=== PATIENT | female | born 1995 | race Caucasian/White ===

== ENCOUNTER 2016-07-29 22:39 | Emergency (ER) | payer MEDICAID ==
[2016-07-29] MEDS ORDERED: NS 0.9% 1000 ML* 1,000 ML IV ONE (23:02)
[2016-07-29 23:56] LABS: Manual Entry Verification LOR0008; UR Preg Internal Control QC Line Present
[2016-07-29 23:58] LABS: Urine Bilirubin Negative (Negative); Urine Glucose Negative (Negative); Urine Nitrite Negative (Negative)
[2016-07-30 00:02] LABS: Hematocrit 33 % (35-47); Hemoglobin 10.8 g/dl (12.0-16.0); Mean Corpuscular HGB Conc 33 g/dl (31-36); Mean Corpuscular Hemoglobin 29 pg (27-31); Mean Corpuscular Volume 87 fL (80-97); Mean Platelet Volume 8 um3 (7.4-10.4); Red Blood Count 3.77 10^6/ul (4.0-5.4); Red Cell Distribution Width 14 % (10.5-15); White Blood Count 13.5 10^3/ul (3.5-10.8)
[2016-07-30 00:10] LABS: Add Diff/Slide Review? Slide Review Added; Comments Flag Yes
[2016-07-30 00:16] LABS: Albumin 3.2 g/dL (3.2-5.2); Anion Gap 7 mmol/L (2-11); BUN/Creatinine Ratio 14.6 (8-20); Blood Urea Nitrogen 7 mg/dL (6-24); CO2 Carbon Dioxide 23 mmol/L (22-32); Calcium 8.6 mg/dL (8.6-10.3); Chloride 105 mmol/L (101-111); EGFR African American 214.3 (>60); EGFR Non-African American 166.6 (>60); Globulin 2.6 g/dL (2-4); Glucose 85 mg/dL (70-100); Potassium 3.5 mmol/L (3.5-5.0); Sodium 135 mmol/L (133-145); Total Protein 5.8 g/dL (6.4-8.9)
[2016-07-30 00:17] LABS: ALT 6 U/L (7-52); AST 10 U/L (13-39); Alkaline Phosphatase 51 U/L (34-104); Lipase < 10 U/L (11.0-82.0)
[2016-07-30 01:08] VITALS: BP 97/54
--- NOTE | 2016-07-30 02:09 | ED ---
Abdoulaye Nair Adam, scribed for Craig Vizcaino on 07/29/16 at 2308 . Abdominal Pain/Female - HPI Summary HPI Summary: Pt is a 20 year old female presenting with abdominal pain. She is 20 weeks into her and she states that she developed severe abdominal pain this afternoon and it has been constant since. The pain is diffuse across both sides of her lower abdomen. Pt denies any vaginal bleeding. PMHx of ovarian cyst. Pt uses tobacco with vape. Her LMP was 03/07/2016. - History of Current Complaint Chief Complaint: EDAbdPain Stated Complaint: ABD PAIN/20 WKS PREG Time Seen by Provider: 07/29/16 22:59 Hx Obtained From: Patient Onset/Duration: Sudden Onset, Lasting Hours, Still Present Timing: Constant Severity Initially: Moderate Severity Currently: Moderate Location: Diffuse - In RLQ and LLQ Radiates: No Aggravating Factor(s): Nothing Alleviating Factor(s): Nothing Associated Signs and Symptoms: Positive: Negative Allergies/Adverse Reactions: Allergies Allergy/AdvReac Type Severity Reaction Status Date / Time No Known Allergies Allergy Verified 10/10/15 01:50 PMH/Surg Hx/FS Hx/Imm Hx Endocrine/Hematology History: Denies: Hx Diabetes Cardiovascular History: Denies: Hx Congestive Heart Failure History: Reports: Other Problems/Disorders - Ovarian cyst Denies: Hx Kidney Stones Infectious Disease History: Denies: Traveled Outside the [place] in Last 30 Days - Family History Known Family History: Positive: Diabetes - Social History Occupation: Employed Full-time Lives: With Family - Parents Alcohol Use: None Hx Substance Use: No Substance Use Type: Reports: None Hx Tobacco Use: Yes Smoking Status (MU): Current Every Day Smoker Type: eCigarettes - Vape Review of Systems Positive: Abdominal Pain Genitourinary: Negative All Other Systems Reviewed And Are Negative: Yes Physical Exam Triage Information Reviewed: Yes Vital Signs Reviewed: Yes Appearance: Positive: Well-Appearing, No Pain Distress Skin: Positive: Warm, Skin Color Reflects Adequate Perfusion, Dry Head/Face: Positive: Normal Head/Face Inspection Eyes: Positive: EOMI, SHRUTHI ENT: Positive: Normal ENT inspection Neck: Positive: Supple, Nontender Respiratory/Lung Sounds: Positive: Clear to Auscultation, Breath Sounds Present Cardiovascular: Positive: RRR, Pulses are Symmetrical in both Upper and Lower Extremities Abdomen Description: Positive: Other: - Tenderness in the RLQ and LLQ Bowel Sounds: Positive: Present Musculoskeletal: Positive: Normal, Strength/ROM Intact Diagnostics - Laboratory Result Diagrams: 07/29/16 23:50 07/29/16 23:50 Lab Statement: Any lab studies that have been ordered have been reviewed, and results considered in the medical decision making process. - Additional Comments Diagnostic Additional Comments: Beta HCG, Quant - 5585.00 Abdomen Ultrasound - IMPRESSION: NONVISUALIZATION THE APPENDIX AND THEREFORE APPENDICITIS CANNOT BE EXCLUDED. Ultrasound - IMPRESSION: NO ACUTE PATHOLOGY. NONVISUALIZATION OF RIGHT OVARY. ECHOGENIC INTRACARDIAC FOCUS. Abdominal Pain Fem Course/Dx - Course Course Of Treatment: Patient has been advised to return to the ED immediately for any worsening pain in the RLQ in the next 72 hours to be evaluated for appendicitis. - Diagnoses Provider Diagnoses: Discomfort of , Nonspecific abdominal pain - Provider Notifications Discussed Care Of Patient With: Dr. Elizondo (LEAK HUNTER) at 00:53. Discharge - Discharge Plan Condition: Stable Disposition: HOME Patient Education Materials: Abdominal Pain in (ED) Referrals: Emre Elizondo MD [Medical Doctor] - Additional Instructions: Follow up with your LEAK HUNTER. The documentation as recorded by the Abdoulaye britt Adam accurately reflects the service I personally performed and the decisions made by , Craig Vizcaino.
--- NOTE | 2016-07-30 08:41 | RAD ---
Indication: Right lower quadrant pain. Graded compression sonography of the right lower quadrant was performed utilizing a high frequency linear transducer. No evidence of abnormal fluid is noted in the right lower quadrant. Appendix is not visualized. IMPRESSION: Limited abdominal ultrasound with appendix not visualized.
--- NOTE | 2016-07-30 08:41 | RAD ---
Indication: Left lower quadrant pain. Real-time sonography of the was performed. There is a single intrauterine gestation in cephalic presentation. There is an anterior placenta without evidence of placenta previa. heart rate is 134 bpm. movement is noted. Amniotic fluid index is 14.4. The cervix is unremarkable and measures 3.4 cm in length. The BPD measures 4.9 cm corresponding to gestational age of 21 weeks 0 days. Head circumference measures 18.5 cm corresponding to gestational age of 20 weeks 6 days. Abdominal circumference measures 15.9 cm corresponding to gestational age of 21 weeks 0 days. Femur length measures 3.6 cm corresponding to gestational age of 21 weeks 4 days. Estimated weight is 403 g. Limited survey performed with a four-chamber heart identified. Likely papillary muscle is noted in the left ventricle. The maternal left ovary measures up to 3.3 cm and demonstrates normal flow. Right ovary is not visualized. IMPRESSION: Limited ultrasound with a closed cervix. Amniotic fluid index is within normal limits. No evidence of placenta previa or placental abruption is noted. heart activity is noted at 134 bpm. Estimated gestational age is 21 weeks 1 day determined by today's ultrasound. Estimated date of delivery is December 09, 2016. Echogenic focus in the left ventricle is likely due to papillary muscle although this is incompletely evaluated. Follow-up exam as clinically warranted is suggested.
== END 2016-07-30 01:07 | disposition home or self-care (01) ==
LOC: ED 22:39
DX: O26.892 Other specified pregnancy related conditions, second trimester (principal); R10.31 Right lower quadrant pain; Z3A.20 20 weeks gestation of pregnancy; O99.332 Smoking (tobacco) complicating pregnancy, second trimester; F17.210 Nicotine dependence, cigarettes, uncomplicated
CPT/HCPCS: 36415; 76705; 76815; 80053; 81003; 81025; 83690; 84702; 85025; 85610; 85730; 86850; 86900; 86901; 96374; 99283

== ENCOUNTER 2016-10-24 02:23 | Emergency (ER) | payer MEDICAID, OTHER ==
[2016-10-24] MEDS ORDERED: Amoxicillin/Clavulanate TAB* 875 MG PO ONE (03:09)
[2016-10-24] MEDS ORDERED: Acetaminophen TAB* 325 MG PO ONE (03:09)
--- NOTE | 2016-10-24 03:14 | ED ---
Sreedhar Nair Benjamin, scribed for Janneth Osborn MD on 10/24/16 at 0252 . Throat Pain/Nasal Congestion - HPI Summary HPI Summary: 21yo female who is 33 weeks presents with left ear pain and not being able to hear from it for few days. Pt has hx of ear surgery on left ear 5-6 years ago for hearing issues. - History of Current Complaint Chief Complaint: EDEarPain Time Seen by Provider: 10/24/16 02:36 Hx Obtained From: Patient, Family/Domestic Technician - mother Onset/Duration: Gradual Onset, Lasting Days - 2-3 days, Still Present Severity: Mild Associated Signs And Symptoms: Positive: Negative Cough: None - Allergies/Home Medications Allergies/Adverse Reactions: Allergies Allergy/AdvReac Type Severity Reaction Status Date / Time No Known Allergies Allergy Verified 10/10/15 01:50 PMH/Surg Hx/FS Hx/Imm Hx Endocrine/Hematology History: Denies: Hx Diabetes Cardiovascular History: Denies: Hx Congestive Heart Failure History: Reports: Other Problems/Disorders - Ovarian cyst Denies: Hx Kidney Stones Infectious Disease History: No Infectious Disease History: Denies: Traveled Outside the [place] in Last 30 Days - Family History Known Family History: Positive: Diabetes Negative: Cardiac Disease, Hypertension - Social History Occupation: Employed Full-time Lives: With Family Alcohol Use: None Hx Substance Use: No Substance Use Type: Reports: None Hx Tobacco Use: Yes Smoking Status (MU): Current Every Day Smoker Type: eCigarettes - Vape Review of Systems Constitutional: Negative Eyes: Negative Positive: Ear Ache - left, Other - left hearing loss Respiratory: Negative Gastrointestinal: Negative Genitourinary: Other - 33 weeks Musculoskeletal: Negative Skin: Negative Neurological: Negative Psychological: Normal All Other Systems Reviewed And Are Negative: Yes Physical Exam Triage Information Reviewed: Yes Vital Signs On Initial Exam: Initial Vitals Temp Pulse Resp BP Pulse Ox 97.9 F 94 18 118/61 99 10/24/16 02:34 10/24/16 02:34 10/24/16 02:34 10/24/16 02:34 10/24/16 02:34 Vital Signs Reviewed: Yes Appearance: Positive: Well-Appearing, No Pain Distress, Well-Nourished Skin: Positive: Warm, Skin Color Reflects Adequate Perfusion, Dry Head/Face: Positive: Normal Head/Face Inspection Eyes: Positive: EOMI, SHRUTHI ENT: Positive: Pharynx normal, TM bulging - left. Negative: TMs normal - left TM: yellow, brown, bulging. Right TM: white scar vs. implant. Neck: Positive: Supple, Nontender Respiratory/Lung Sounds: Negative: Rales, Rhonchi Cardiovascular: Positive: RRR. Negative: Murmur Abdomen Description: Positive: Nontender, Soft - weeks , Other:. Negative: Distended, Guarding Bowel Sounds: Positive: Present Musculoskeletal: Positive: Strength/ROM Intact Neurological: Positive: Sensory/Motor Intact, Alert, Oriented to Person Place, Time, CN Intact II-III Psychiatric: Positive: Affect/Mood Appropriate Diagnostics - Vital Signs Vital Signs Temp Pulse Resp BP Pulse Ox 10/24/16 02:34 97.9 F 94 18 118/61 99 - Laboratory Lab Statement: Any lab studies that have been ordered have been reviewed, and results considered in the medical decision making process. EENT Course/Dx - Course Course Of Treatment: 21 yo female with mult surgeries to both ears now with hearing issues and pain out of left ear for several days, her TM appears discolored and appears to be bulging will treat for otitis media and have pt see ENT in the next 1-2 days - Diagnoses Provider Diagnoses: Otitis media Discharge - Discharge Plan Condition: Stable Disposition: HOME Prescriptions: Amoxicillin/Clavulanate TAB* [Augmentin TAB 875*] 875 mg PO BID #20 tab Referrals: Alejandro Wheat MD [Primary Care Provider] - The documentation as recorded by the Sreedhar britt Benjamin accurately reflects the service I personally performed and the decisions made by me, Janneth Osborn MD.
[2016-10-24 04:28] VITALS: BP 106/52
== END 2016-10-24 04:26 | disposition home or self-care (01) ==
LOC: ED 02:23
DX: H66.92 Otitis media, unspecified, left ear (principal); H92.02 Otalgia, left ear; H91.92 Unspecified hearing loss, left ear; F17.210 Nicotine dependence, cigarettes, uncomplicated
CPT/HCPCS: 99283; A9270-GY

== ENCOUNTER 2016-11-26 12:39 | Inpatient (IN) | payer MEDICAID, OTHER ==
[2016-11-26] MEDS ORDERED: Oxytocin in LR* 20 UNITS/1,000 ML BAG IVPB SCH (23:45)
[2016-11-27 00:41] LABS: Hematocrit 32 % (35-47); Hemoglobin 10.8 g/dl (12.0-16.0); Mean Corpuscular HGB Conc 33 g/dl (31-36); Mean Corpuscular Hemoglobin 29 pg (27-31); Mean Corpuscular Volume 85 fL (80-97); Mean Platelet Volume 9 um3 (7.4-10.4); Red Blood Count 3.79 10^6/ul (4.0-5.4); Red Cell Distribution Width 15 % (10.5-15); White Blood Count 14.7 10^3/ul (3.5-10.8)
[2016-11-27 00:44] LABS: Add Diff/Slide Review? Slide Review Added; Comments Flag Yes
[2016-11-27] MEDS ORDERED: Promethazine INJ(RESTRICTED)* 25 MG/ML 1 ML VIAL IV ONE (04:17)
[2016-11-27] MEDS ORDERED: Nalbuphine* 20 MG/ML 1 ML VIAL IV ONE (04:17)
[2016-11-27] MEDS ORDERED: OBEPIDURAL* 0 ML ONE (07:59)
[2016-11-27] MEDS ORDERED: fentaNYL* 50 MCG/ML 2 ML VIAL (100 MCG VIAL) ONE (08:34)
[2016-11-27] MEDS ORDERED: Witch Hazel PAD* JAR TOPICAL PRN (09:23)
[2016-11-27] MEDS ORDERED: Dibucaine 1% 28.35 GM TUBE PR PRN (09:23)
[2016-11-27] MEDS ORDERED: Glycerin ADULT SUPP PR PRN (09:23)
[2016-11-27] MEDS ORDERED: Acetaminophen TAB* 325 MG PO PRN (09:23)
[2016-11-27] MEDS ORDERED: Famotidine TAB* 20 MG PO PRN (10:08)
[2016-11-27] MEDS ORDERED: Sodium Citrate/Citric Acid* 15 ML UDC PO PRN (10:08)
[2016-11-27] MEDS: Simethicone CHEW TAB* 80 MG PO SCH (12:48)
[2016-11-27] MEDS: Ibuprofen TAB* 600 MG PO PRN ×2 (13:13→22:06)
[2016-11-27] MEDS: Docusate CAP* 100 MG PO SCH ×2 (13:13→22:05)
[2016-11-27] MEDS: oxyCODONE/Acetamin 5/325 MG* TAB PO PRN (23:09)
[2016-11-28] MEDS ORDERED: LR IV ONE (00:45)
[2016-11-28] MEDS: oxyCODONE/Acetamin 5/325 MG* TAB PO PRN ×2 (03:44→09:10)
[2016-11-28 06:36] LABS: Hematocrit 32 % (35-47); Hemoglobin 10.3 g/dl (12.0-16.0); Mean Corpuscular HGB Conc 32 g/dl (31-36); Mean Corpuscular Hemoglobin 28 pg (27-31); Mean Corpuscular Volume 86 fL (80-97); Mean Platelet Volume 8 um3 (7.4-10.4); Red Cell Distribution Width 16 % (10.5-15); White Blood Count 16.5 10^3/ul (3.5-10.8)
[2016-11-28 06:40] LABS: Add Diff/Slide Review? Slide Review Added; Comments Flag Yes
[2016-11-28 08:22] LABS: Eosinophils % 1 % (0-6); Immature Granulocytes 3 % (0-9); Metamyelocytes % 1 % (0-2); Myelocytes % 2 % (0-1); Neutrophil % 74 % (38-83); RBC Morphology Normal (Normal); Reactive Lymph % 1 % (0-6)
[2016-11-28] MEDS ORDERED: Varicella Virus Vaccine Live* 0.5 ML VIAL SUBCUT ONE (09:00)
[2016-11-28] MEDS: Ferrous Gluconate TAB* 324 MG TAB PO SCH ×2 (09:00→21:30)
[2016-11-28] MEDS: Ibuprofen TAB* 600 MG PO PRN ×2 (09:09→16:27)
[2016-11-28] MEDS: Docusate CAP* 100 MG PO SCH ×3 (09:09→21:30)
[2016-11-28] MEDS ORDERED: Butalb/Acetamin/Caff TAB* 1 TAB ONE (12:45)
[2016-11-28] MEDS: Butalb/Acetamin/Caff TAB* 1 TAB PO SCH ×2 (16:29→21:30)
[2016-11-28] MEDS: Simethicone CHEW TAB* 80 MG PO SCH (21:31)
[2016-11-29] MEDS: Butalb/Acetamin/Caff TAB* 1 TAB PO SCH ×2 (05:35→05:36)
--- NOTE | 2016-11-29 06:59 | PM ---
PROCEDURE NOTE: DATE OF PROCEDURE: 11/28/16 CHIEF COMPLAINT: Headache. HISTORY: The patient is a 21-year-old female who underwent a labor epidural yesterday morning by Dr Jakob Lay. Unfortunately, the patient experienced a dural puncture and subsequently has had persistent postural headaches today that are causing her to be nearly incapacitated with pain. They tried con servative measures today with Fioricet and IV fluids, but unfortunately the patient's headache has p ersisted and they have requested an epidural blood patch. In my interview of the patient she states that she does have continued postural headache. It is relieved slightly while lying flat, worsens with standing up. ASSESSMENT AND PLAN: Post dural puncture headache. I talked to the patient today about an epidural blood patch. The risks, benefits and alternatives of therapy and informed consent was obtained. PROCEDURE NOTE: The patient's right antecubital area was prepped and draped in the usual sterile fa shion. I then prepped and draped her back, again in the usual sterile fashion; 3 cc of 1% lidocaine were used for local anesthesia at the L3-4 interspace. A 17-gauge Tuohy needle was used to identif y the epidural space using [id number] technique. There was no CSF, blood or paresthesia not ed. There was negative aspiration. I proceeded to then aseptically collect 16 cc of blood from the right antecubital area using strict sterile technique. I then proceeded to inject the blood increm entally into the epidural space with frequent negative aspirations. The patient tolerated the proce dure well. I did talk to her about the fact that she should try to remain still, not lift the baby too much tod ay, so as not to dislodge the patch. There is a small possibility that the headache can recur even in the setting of doing epidural blood patch today. They will call the anesthesiologist on-call if they have any further concerns with headaches. [id number]/[facility] #: [id number]
[2016-11-29 07:39] VITALS: BP 109/59
[2016-11-29] MEDS: Docusate CAP* 100 MG PO SCH (08:57)
== END 2016-11-29 11:01 | disposition home or self-care (01) | DRG 560 ==
LOC: MCHOBOUT 12:39 → MCHOB 13:51
PROVIDERS: ADMIT Obstetrics & Gynecology; ATTEND Midwife
PROC: 10E0XZZ Delivery of Products of Conception, External Approach (ICD-10-PCS; principal; 2016-11-27)
PROC: 4A1HXCZ Monitoring of Products of Conception, Cardiac Rate, External Approach (ICD-10-PCS; 2016-11-27)
DX: O42.12 Full-term premature rupture of membranes, onset of labor more than 24 hours following rupture (principal); J45.909 Unspecified asthma, uncomplicated; O75.89 Other specified complications of labor and delivery; O89.4 Spinal and epidural anesthesia-induced headache during the puerperium; Z3A.37 37 weeks gestation of pregnancy; Z37.0 Single live birth
CPT/HCPCS: 36415; 76815; 84112; 85025; 86850; 86900; 86901; A9270-GY; J2300; J2550; J3010

== ENCOUNTER 2016-12-01 03:00 | Emergency (ER) | payer MEDICAID, OTHER ==
[2016-12-01] MEDS ORDERED: Metoclopramide IV* 5 MG/ML 2 ML VIAL IV ONE (03:43)
[2016-12-01] MEDS ORDERED: diPHENhydraMINE IV* 50 MG/ML 1 ml VIAL (BENADRYL) IV ONE (03:43)
[2016-12-01] MEDS ORDERED: NS 0.9% 1000 ML* 1,000 ML IV ONE (03:43)
[2016-12-01] MEDS ORDERED: Morphine INJ* 2 MG/ML 1 ML SYRINGE IV ONE (03:43)
--- NOTE | 2016-12-01 04:13 | ED ---
Davide Nair Thomas, scribed for Raheem Dale MD on 12/01/16 at 0403 . Headache - HPI Summary HPI Summary: The pt is a 21 y/o F presenting to the ED c/o a RICE that began yesterday at 08: 00. The pt rates the pain 10/10. The pain is aggravated and alleviated by nothing. The patient has treated the pain with Tylenol and Advil RETAIL STORE ASSISTANT. The patient delivered a baby five days ago, where she was given an epidural. Following this, she developed a RICE. She was evaluated by Dr. Friedman on 11/28/16 where she was diagnosed with a post dural puncture headache. Pt denies any other complaints at this time. PMHx: mononucleosis, ovarian cyst. PSHx: P.E. Tubes. SHx: no smoking, no alcohol use, no illicit drug use. FHx: DM. The patient is accompanied by her family. - History Of Current Complaint Chief Complaint: EDHeadache Stated Complaint: POST EPIDORAL HEADACHE Time Seen by Provider: 12/01/16 03:39 Hx Obtained From: Patient, Family/Learn To Swim Instructor - accompanied by family Onset/Duration: Sudden Onset, Started days ago - yesterday at 08:00, Still Present Timing: Constant Aggravating Factor: Nothing Allevating Factors: Nothing Associated Signs And Symptoms: Negative Related History: Recent Trauma: - Recently diagnosed with post dural puncture headache - Allergies/Home Medications Allergies/Adverse Reactions: Allergies Allergy/AdvReac Type Severity Reaction Status Date / Time No Known Allergies Allergy Verified 12/01/16 03:08 PMH/Surg Hx/FS Hx/Imm Hx Previously Healthy: No Endocrine/Hematology History: Denies: Hx Diabetes Cardiovascular History: Denies: Hx Congestive Heart Failure Respiratory History: Reports: Hx Asthma History: Reports: Other Problems/Disorders - Ovarian cyst Denies: Hx Kidney Stones - Surgical History Surgery Procedure, Year, and Place: P.E. Tubes Infectious Disease History: No Infectious Disease History: Denies: Traveled Outside the [place] in Last 30 Days - Family History Known Family History: Positive: Diabetes Negative: Cardiac Disease, Hypertension - Social History Alcohol Use: None Hx Substance Use: No Substance Use Type: Reports: None Hx Tobacco Use: Yes Smoking Status (MU): Current Every Day Smoker Type: eCigarettes Have You Smoked in the Last Year: Yes - "occ vaping" Review of Systems Negative: Fever Positive: Headache - 10/10, onset yesterday at 08:00, recently diagnosed with post dural puncture headache All Other Systems Reviewed And Are Negative: Yes Physical Exam Triage Information Reviewed: Yes Vital Signs On Initial Exam: Initial Vitals Temp Pulse Resp BP Pulse Ox 98.7 F 82 16 124/88 97 12/01/16 03:09 12/01/16 03:09 12/01/16 03:09 12/01/16 03:09 12/01/16 03:09 Vital Signs Reviewed: Yes Appearance: Positive: Well-Appearing, Pain Distress - mild discomfort Skin: Positive: Warm Head/Face: Positive: Normal Head/Face Inspection Eyes: Positive: EOMI, SHRUTHI ENT: Positive: Hearing grossly normal Neck: Positive: Supple, Nontender Respiratory/Lung Sounds: Positive: Clear to Auscultation, Breath Sounds Present Cardiovascular: Positive: RRR Abdomen Description: Positive: Nontender, Soft Bowel Sounds: Positive: Present Musculoskeletal: Positive: Strength/ROM Intact Neurological: Positive: Sensory/Motor Intact, Alert, Oriented to Person Place, Time, Normal Gait Psychiatric: Positive: Affect/Mood Appropriate Diagnostics - Vital Signs Vital Signs Temp Pulse Resp BP Pulse Ox 12/01/16 03:09 98.7 F 82 16 124/88 97 - Laboratory Result Diagrams: 12/01/16 04:00 12/01/16 04:00 Lab Statement: Any lab studies that have been ordered have been reviewed, and results considered in the medical decision making process. Re-Evaluation - Re-Evaluation First Eval Change: Improved - pain free Headache Course/Dx - Course Assessment/Plan: The pt is a 21 y/o F presenting to the ED c/o a RICE that began yesterday at 08:00. The pt rates the pain 10/10. The pain is aggravated and alleviated by nothing. The patient has treated the pain with Tylenol and Advil RETAIL STORE ASSISTANT. The patient delivered a baby five days ago, where she was given an epidural. Following this, she developed a RICE. She was evaluated by Dr. Friedman on 11/28/16 where she was diagnosed with a post dural puncture headache. Pt denies any other complaints at this time. PMHx: mononucleosis, ovarian cyst. PSHx: P.E. Tubes. SHx: no smoking, no alcohol use, no illicit drug use. FHx: DM. The patient is accompanied by her family. In the ED the patient was given IV fluids, Morphine, Reglan, and Benadryl. Blood work shows WBC 13.8, Hgb 11.9, BUN 5, Creatinine 0.50, Glucose 108, AST 12, total protein 6.2. Patient is diagnosed with RICE. Patient will be discharged home with follow up by PCP. Patient is agreeable to this plan. - Diagnoses Provider Diagnoses: Headache Discharge - Discharge Plan Condition: Improved Disposition: HOME Patient Education Materials: Acute Headache (ED) Referrals: Alejandro Wheat MD [Primary Care Provider] - 3 Days The documentation as recorded by the Davide britt Thomas accurately reflects the service I personally performed and the decisions made by , Raheem Dale MD.
[2016-12-01 04:16] LABS: Hematocrit 36 % (35-47); Hemoglobin 11.9 g/dl (12.0-16.0); Mean Corpuscular HGB Conc 33 g/dl (31-36); Mean Corpuscular Hemoglobin 28 pg (27-31); Mean Corpuscular Volume 85 fL (80-97); Mean Platelet Volume 8 um3 (7.4-10.4); Red Cell Distribution Width 16 % (10.5-15); White Blood Count 13.8 10^3/ul (3.5-10.8)
[2016-12-01 04:30] LABS: Add Diff/Slide Review? Slide Review Added; Comments Flag Yes
[2016-12-01 04:32] LABS: Albumin 3.4 g/dL (3.2-5.2); Calcium 9.8 mg/dL (8.6-10.3); EGFR African American 202.3 (>60); EGFR Non-African American 157.3 (>60); Globulin 2.8 g/dL (2-4); Potassium 3.6 mmol/L (3.5-5.0); Total Bilirubin 0.3 mg/dL (0.2-1.0); Total Protein 6.2 g/dL (6.4-8.9)
[2016-12-01 05:12] LABS: Eosinophils % 1 % (0-6); Immature Granulocytes 18 % (0-9); Neutrophil % 65 % (38-83)
[2016-12-01 05:13] LABS: RBC Morphology Normal (Normal)
[2016-12-01 06:15] VITALS: BP 103/52
== END 2016-12-01 06:24 | disposition home or self-care (01) ==
LOC: ED 03:00
DX: R51 Headache (principal); G97.1 Other reaction to spinal and lumbar puncture; J45.909 Unspecified asthma, uncomplicated; F17.210 Nicotine dependence, cigarettes, uncomplicated
CPT/HCPCS: 36415; 80053; 85025; 96361; 96374; 96375; 99284; J1200; J2270; J2765

== ENCOUNTER 2016-12-01 19:54 | Emergency (ER) | payer OTHER ==
[2016-12-01] MEDS ORDERED: NS 0.9% 1000 ML* 1,000 ML IV ONE (21:08)
--- NOTE | 2016-12-01 21:36 | RAD ---
HISTORY: Headache COMPARISONS: None TECHNIQUE: Multiple contiguous axial CT scans were obtained of the head without intravenous contrast. FINDINGS: HEMORRHAGE/INFARCT: There is no hemorrhage or acute infarct. MASSES/SHIFT: There is no mass or shift. EXTRA-AXIAL SPACES: There are no extra-axial fluid collections. SULCI AND VENTRICLES: The sulci and ventricles are normal in size and position for the patient's stated age. CEREBRUM: There are no focal parenchymal abnormalities. BRAINSTEM: There are no focal parenchymal abnormalities. CEREBELLUM: There are no focal parenchymal abnormalities. VESSELS: The vessels are grossly normal. PARANASAL SINUSES: The paranasal sinuses are clear. ORBITS: The orbits are unremarkable. BONES AND SOFT TISSUE: No bone or soft tissue abnormalities are noted. OTHER: None IMPRESSION: NO ACUTE INTRACRANIAL PATHOLOGY.
--- NOTE | 2016-12-01 22:36 | ED ---
Leslie Nair Rebecca, scribed for Raheem Dale MD on 12/01/16 at 2111 . Headache - HPI Summary HPI Summary: Pt is a 21 y/o F BIBA transferred from [facility] who presents to ED c/o RICE. Sx began yesterday at 0800 and is currently severe, ranked 8/10 and characterized as a migraine. Pain bilaterally radiates down the upper extremities. Has treated with Tylenol, Advil and Motrin REHABILITATION NURSE which have not alleviated sx. Sx aggravated and alleviated by nothing. Pt delivered a child 5 days ago and was evaluated by [facility] ED this morning for similar sx. - History Of Current Complaint Chief Complaint: EDHeadache Stated Complaint: XFER FROM [facility] Time Seen by Provider: 12/01/16 21:05 Hx Obtained From: Patient Onset/Duration: Started days ago - Yesterday, Still Present Currently Pain Is: Current Pain Scale(0-10)= - 8/10, Severe Character: Migraine Radiates to: Bilateral upper extremities Aggravating Factor: Nothing Allevating Factors: Nothing Associated Signs And Symptoms: Negative Related History: Similar Episode/DX As: - Evaluated this morning for similar sx - Allergies/Home Medications Allergies/Adverse Reactions: Allergies Allergy/AdvReac Type Severity Reaction Status Date / Time No Known Allergies Allergy Verified 12/01/16 03:08 PMH/Surg Hx/FS Hx/Imm Hx Endocrine/Hematology History: Denies: Hx Diabetes Cardiovascular History: Denies: Hx Congestive Heart Failure Respiratory History: Reports: Hx Asthma History: Reports: Other Problems/Disorders - Ovarian cyst Denies: Hx Kidney Stones - Surgical History Surgery Procedure, Year, and Place: P.E. Tubes Infectious Disease History: No Infectious Disease History: Denies: Traveled Outside the [place] in Last 30 Days - Family History Known Family History: Positive: Diabetes Negative: Cardiac Disease, Hypertension - Social History Alcohol Use: None Hx Substance Use: No Substance Use Type: Reports: None Hx Tobacco Use: Yes Smoking Status (MU): Former Smoker Type: eCigarettes Have You Smoked in the Last Year: Yes - "occ vaping" Review of Systems Negative: Fever Positive: Headache All Other Systems Reviewed And Are Negative: Yes Physical Exam Triage Information Reviewed: Yes Vital Signs On Initial Exam: Initial Vitals BP 118/76 12/01/16 20:27 Vital Signs Reviewed: Yes Appearance: Positive: Pain Distress - mild discomfort, Thin Skin: Positive: Warm Head/Face: Positive: Normal Head/Face Inspection Eyes: Positive: EOMI, SHRUTHI ENT: Positive: Hearing grossly normal Neck: Positive: Supple, Nontender Respiratory/Lung Sounds: Positive: Breath Sounds Present Cardiovascular: Positive: RRR Abdomen Description: Positive: Nontender, Soft Bowel Sounds: Positive: Present Musculoskeletal: Positive: Strength/ROM Intact Neurological: Positive: Sensory/Motor Intact, Alert, Oriented to Person Place, Time, Normal Gait Psychiatric: Positive: Anxious - Leeroy Coma Scale Coma Scale Total: 15 Diagnostics - Vital Signs Vital Signs Temp Pulse Resp BP Pulse Ox 12/01/16 20:30 51 16 113/76 99 12/01/16 20:28 98.8 F 50 17 113/76 100 12/01/16 20:27 118/76 - Laboratory Lab Statement: Any lab studies that have been ordered have been reviewed, and results considered in the medical decision making process. - CT Brain CT CT Interpretation: No Acute Changes - NO ACUTE INTRACRANIAL PATHOLOGY. ED physician reviewed this radiology report and agrees. CT Interpretation Completed By: Radiologist Re-Evaluation - Re-Evaluation First Eval Re-Evaluation Time: 02:24 Change: Improved Comment: Discussed results and D/C plan. Second Eval Change: Improved - blood patch by debby lay with improvement Headache Course/Dx - Course Assessment/Plan: Pt is a 21 y/o F BIBA transferred from [facility] who presents to ED c/o RICE since yesterday at 0800. Pain currently severe, ranked 8/ 10 and characterized as a migraine. Pain bilaterally radiates down the upper extremities. Has treated with Tylenol, Advil and Motrin REHABILITATION NURSE which have not alleviated sx. Pt delivered a child 5 days ago and was evaluated by [facility] ED this morning for similar sx. Brain CT reveals no acute findings. In the ED course, pt received fluids and Motrin. Discussed care of pt with Dr. Lay who will evaluate the pt in the ED and place a blood patch. She will be D/C to home with Dx of RCIE and a follow up with her PCP. She understands and agrees. - Diagnoses Provider Diagnoses: Headache - Physician Notifications Discussed Care Of Patient With: Guillermo Lay Time Discussed With Above Provider: 22:15 Instructed by Provider To: Other - Discussed the pt and he will evaluate the pt in the ED and place a blood patch. Discharge - Discharge Plan Condition: Improved Disposition: HOME Patient Education Materials: General Headache (ED) Referrals: Alejandro Wheat MD [Primary Care Provider] - 3 Days Additional Instructions: Return to ED for any returning or worsening symptoms. The documentation as recorded by the Leslie britt Rebecca accurately reflects the service I personally performed and the decisions made by me, Raheem Dale MD.
[2016-12-02] MEDS ORDERED: Ibuprofen TAB* 600 MG PO ONE (00:40)
[2016-12-02 02:35] VITALS: BP 135/90
== END 2016-12-02 02:39 | disposition home or self-care (01) ==
LOC: ED 19:54
DX: R51 Headache (principal); Z87.891 Personal history of nicotine dependence
CPT/HCPCS: 70450; 96360; 99283; A9270-GY

== ENCOUNTER 2019-06-14 13:20 | Observation (INO) | payer SELFPAY ==
[2019-06-14] MEDS ORDERED: NS 0.9% 1000 ML** 2,000 ML IV ONE (14:04)
[2019-06-14] MEDS ORDERED: Ondansetron INJ* 2 MG/ML VIAL IV ONE (14:04)
[2019-06-14] MEDS ORDERED: Acetaminophen TAB* 325 MG PO ONE ×2 (14:07→21:34)
[2019-06-14] MEDS ORDERED: Ketorolac INJ* 30 MG/ML 1 ML VIAL IV ONE (14:07)
[2019-06-14 14:21] LABS: Influenza A Molecular Negative (Negative); Influenza B Molecular Negative (Negative)
[2019-06-14] MEDS ORDERED: Piperacillin/Tazobac ADVAN(*) 3.375 GM in NS 0.9% 100 ML* 100 ML IVPB ONE (14:28)
[2019-06-14 14:33] LABS: ABS Eosinophils 0.1 10^3/ul (0-0.6); ABS Lymphocytes 0.3 10^3/ul (1.0-4.8); ABS Monocytes 0.4 10^3/ul (0-0.8); Hematocrit 37 % (35-47); Hemoglobin 12.9 g/dL (12.0-16.0); Lymphocyte % 4.8 %; Mean Corpuscular HGB Conc 35 g/dL (31-36); Mean Corpuscular Hemoglobin 30 pg (27-31); Mean Corpuscular Volume 87 fL (80-97); Mean Platelet Volume 7.8 fL (7.4-10.4); Platelet Count 150 10^3/uL (150-450); Red Blood Count 4.29 10^6 /uL (3.70-4.87); Red Cell Distribution Width 13 % (10-15); White Blood Count 5.8 10^3/uL (3.5-10.8)
[2019-06-14 14:48] LABS: Albumin 4.1 g/dL (3.2-5.2); Anion Gap 6 mmol/L (2-11); CO2 Carbon Dioxide 26 mmol/L (22-32); Calcium 9.1 mg/dL (8.6-10.3); Chloride 105 mmol/L (101-111); Sodium 137 mmol/L (135-145)
[2019-06-14 14:54] LABS: ALT 8 U/L (7-52); AST 12 U/L (13-39); Albumin/Globulin Ratio 1.6 (1-3); Alkaline Phosphatase 53 U/L (34-104); BUN/Creatinine Ratio 11.8 (8-20); Blood Urea Nitrogen 8 mg/dL (6-24); C Reactive Protein 22.25 mg/L (<8.01); EGFR African American 130.9 (>60); EGFR Non-African American 108.2 (>60); Globulin 2.6 g/dL (2-4); Glucose 97 mg/dL (70-100); Total Protein 6.7 g/dL (6.4-8.9)
[2019-06-14 14:57] LABS: HCG Pregnancy < 0.60 mIU/mL
[2019-06-14] MEDS ORDERED: Vancomycin 1500 MG IV - x ONCE IVPB ONE ×2 (15:00)
[2019-06-14] MEDS ORDERED: Vancomycin(*) 1,000 MG VIAL IVPB SCH (15:00)
[2019-06-14 15:57] LABS: Urine Appearance Cloudy; Urine Bilirubin Negative (Negative); Urine Blood Negative (Negative); Urine Color Yellow; Urine Glucose Negative (Negative); Urine Ketones Negative (Negative); Urine Nitrite Negative (Negative); Urine Protein Negative (Negative); Urine Specific Gravity 1.023 (1.010-1.030); Urine Urobilinogen Negative (Negative)
[2019-06-14 16:00] LABS: Rapid Strep Molecular Negative (Negative)
[2019-06-14] MEDS ORDERED: NS 0.9% 1000 ML** 1,000 ML IV ONE (17:16)
[2019-06-14] MEDS ORDERED: Iohexol 350* (CONTRAST) 500 ML MDV IV ONE (17:45)
[2019-06-14] MEDS ORDERED: Butalb/Acetamin/Caff TAB* 1 TAB PO ONE (18:01)
--- NOTE | 2019-06-14 18:01 | ED ---
Progress - Progress Note Progress Note: Patient was signed out to me by CATY Covarrubias at 1730 pending results of CTA chest. CTA chest negative for pathology. Patient given additional liter of IV fluids as well as Tylenol. Urine drug screen negative. Hospitalist, Dr. Duncan consulted for admission of the patient for observation due to the tachycardia. Patient admitted to [facility]. Re-Evaluation - Re-Evaluation First Eval Change: Improved - sxs improved, continues to be tachycardic Second Eval Change: Unchanged - tachy/ continues to have RICE, but this has improved Course/Dx - Diagnoses Provider Diagnoses: Fever Discharge ED - Sign-Out/Discharge Documenting (check all that apply): Patient Departure - Discharge Plan Condition: Fair Disposition: ADMITTED TO [facility] - Billing Disposition and Condition Condition: FAIR Disposition: Admitted to [facility]
--- NOTE | 2019-06-14 18:19 | ED ---
HPI Febrile Illness - HPI Summary HPI Summary: This patient is a 23yo otherwise healthy F presenting to the ED with flu-like sxs since last night. States she started to have body aches, fevers, sweats and chills in the middle of the night and now endorses feeling very cold. She last took tylenol this morning at 7am with no relief of sxs. Her daughter tested positive for flu 2 days ago and currently on tamiflu. Patient does endorse a cough and sore throat, also which started last night and has been having migraines. Sxs of migraine rated 5/10, not worst of life. Takes Fioricet at home, but has not taken any today. Patient denies any stiff neck. States photophobia, however this is her baseline for her migraine hx. States also checked into ED at same time for same sxs, also starting last night. Denies any SOB. Endorsing cough, but without production. Gardner well yesterday. Denies any travel or sick contacts outside of her flu + daughter. PMH - ashtma and multiple surgeries for myringotomy tubes. - History of Current Complaint Chief Complaint: EDFluSymptoms Time Seen by Provider: 06/14/19 13:49 Hx Obtained From: Patient Onset/Duration: Started Hours Ago Time of Onset: 01:00 Timing: Constant Temperature: 99.8 F Initial Severity: Moderate Current Severity: Moderate Pain Intensity: 5 Pain Scale Used: 0-10 Numeric Aggravating Factors: Nothing Alleviating Factors: Nothing - Risk Factors Pseudomonas Risk Factors: Negative Serious Bacterial Infection Risk Factors: Negative - Allergy/Home Medications Allergies/Adverse Reactions: Allergies Allergy/AdvReac Type Severity Reaction Status Date / Time No Known Allergies Allergy Verified 06/14/19 13:27 Home Medications: Home Medications NK [No Home Medications Reported] 06/14/19 [History Confirmed 06/14/19] PMH/Surg Hx/FS Hx/Imm Hx Previously Healthy: Yes Endocrine/Hematology History: Denies: Hx Diabetes Cardiovascular History: Denies: Hx Congestive Heart Failure, Hx Hypertension Respiratory History: Reports: Hx Asthma History: Reports: Other Problems/Disorders - Ovarian cyst Denies: Hx Kidney Stones, Hx Renal Disease - Surgical History Surgery Procedure, Year, and Place: P.E. Tubes - Immunization History Hx Pertussis Vaccination: No Immunizations Up to Date: Yes Infectious Disease History: No Infectious Disease History: Denies: Traveled Outside the [place] in Last 30 Days - Family History Known Family History: Positive: Diabetes Negative: Cardiac Disease, Hypertension - Social History Occupation: Employed Full-time Lives: With Family Alcohol Use: None Hx Substance Use: No Substance Use Type: Reports: None Hx Tobacco Use: Yes Smoking Status (MU): Former Smoker Type: eCigarettes Have You Smoked in the Last Year: Yes - "occ vaping" Review of Systems Positive: Fever, Chills, Fatigue Positive: Photophobia Positive: Sore Throat. Negative: Ear Ache, Nasal Discharge Positive: Chest Pain - once while coughing - none currently. Negative: Palpitations Positive: Cough. Negative: Shortness Of Breath Negative: Abdominal Pain, Nausea Genitourinary: Negative Positive: no symptoms reported, see HPI Positive: Myalgia - diffuse Negative: Rash, Bruising Positive: Headache. Negative: Weakness, Paresthesia, Numbness, Syncope All Other Systems Reviewed And Are Negative: Yes Physical Exam Triage Information Reviewed: Yes Vital Signs On Initial Exam: Initial Vitals Temp Pulse Resp BP Pulse Ox 99.8 F 125 18 115/73 100 06/14/19 13:24 06/14/19 13:24 06/14/19 13:24 06/14/19 13:24 06/14/19 13:24 Appearance: Positive: Ill-Appearing Skin: Positive: Diaphoretic Head/Face: Positive: Normal Head/Face Inspection Eyes: Positive: EOMI, SHRUTHI, Conjunctiva Clear ENT: Positive: Hearing grossly normal, Pharyngeal erythema, TMs normal, Hoarse voice, Uvula midline. Negative: Nasal congestion, TM bulging, TM dull, TM red, Tonsillar swelling, Tonsillar exudate, Dental tenderness, Sinus tenderness Respiratory/Lung Sounds: Positive: Clear to Auscultation, Breath Sounds Present Cardiovascular: Positive: RRR, Pulses are Symmetrical in both Upper and Lower Extremities Bowel Sounds: Positive: Present Musculoskeletal: Positive: Normal, Strength/ROM Intact Neurological: Positive: Normal, Sensory/Motor Intact Psychiatric: Positive: Normal, Anxious Procedures - Sedation Patient Received Moderate/Deep Sedation with Procedure: No Diagnostics - Vital Signs Vital Signs Temp Pulse Resp BP Pulse Ox 06/14/19 17:00 119 100 06/14/19 16:54 124 89/57 100 06/14/19 16:43 100.3 F 06/14/19 16:24 111 102/54 99 06/14/19 16:00 126 100 06/14/19 15:54 122 97/60 99 06/14/19 15:36 114 96 06/14/19 15:34 120 94/50 98 06/14/19 14:00 109 98 06/14/19 13:54 109 99/54 99 06/14/19 13:24 99.8 F 125 18 115/73 100 - Laboratory Lab Results: Lab Results 06/14/19 06/14/19 06/14/19 Range/Units 13:58 14:18 14:18 WBC (3.5-10.8) 10^3/uL RBC (3.70-4.87) 10^6 /uL Hgb (12.0-16.0) g/dL Hct (35-47) % MCV (80-97) fL MCH (27-31) pg MCHC (31-36) g/dL RDW (10-15) % Plt Count (150-450) 10^3/uL MPV (7.4-10.4) fL Neut % (Auto) % Lymph % (Auto) % Mill[place] % (Auto) % Eos % (Auto) % Baso % (Auto) % Absolute Neuts (auto) (1.5-7.7) 10^3/ul Absolute Lymphs (auto) (1.0-4.8) 10^3/ul Absolute Monos (auto) (0-0.8) 10^3/ul Absolute Eos (auto) (0-0.6) 10^3/ul Absolute Basos (auto) (0-0.2) 10^3/ul Absolute Nucleated RBC 10^3/ul Nucleated RBC % Sodium 137 (135-145) mmol/L Potassium 4.0 (3.5-5.0) mmol/L Chloride 105 (101-111) mmol/L Carbon Dioxide 26 (22-32) mmol/L Anion Gap 6 (2-11) mmol/L BUN 8 (6-24) mg/dL Creatinine 0.68 (0.51-0.95) mg/dL Est GFR ( Amer) 130.9 (>60) Est GFR (Non-Af Amer) 108.2 (>60) BUN/Creatinine Ratio 11.8 (8-20) Glucose 97 (70-100) mg/dL Lactic Acid 0.7 (0.5-2.0) mmol/L Calcium 9.1 (8.6-10.3) mg/dL Total Bilirubin 0.50 (0.2-1.0) mg/dL AST 12 L (13-39) U/L ALT 8 (7-52) U/L Alkaline Phosphatase 53 (34-104) U/L C-Reactive Protein 22.25 H (<8.01) mg/L Total Protein 6.7 (6.4-8.9) g/dL Albumin 4.1 (3.2-5.2) g/dL Globulin 2.6 (2-4) g/dL Albumin/Globulin Ratio 1.6 (1-3) Beta HCG, Quant < 0.60 mIU/mL Urine Color Urine Appearance Urine pH (5-9) Ur Specific [place] (1.010-1.030) Urine Protein (Negative) Urine Ketones (Negative) Urine Blood (Negative) Urine Nitrate (Negative) Urine Bilirubin (Negative) Urine Urobilinogen (Negative) Ur Leukocyte Esterase (Negative) Urine Glucose (Negative) Influenza A (Rapid) Negative (Negative) Influenza B (Rapid) Negative (Negative) Group A Strep Rapid (Negative) 06/14/19 06/14/19 06/14/19 Range/Units 14:21 15:38 15:38 WBC 5.8 (3.5-10.8) 10^3/uL RBC 4.29 (3.70-4.87) 10^6 /uL Hgb 12.9 (12.0-16.0) g/dL Hct 37 (35-47) % MCV 87 (80-97) fL MCH 30 (27-31) pg MCHC 35 (31-36) g/dL RDW 13 (10-15) % Plt Count 150 (150-450) 10^3/uL MPV 7.8 (7.4-10.4) fL Neut % (Auto) 86.7 % Lymph % (Auto) 4.8 % Mill[place] % (Auto) 7.2 % Eos % (Auto) 1.0 % Baso % (Auto) 0.3 % Absolute Neuts (auto) 5.0 (1.5-7.7) 10^3/ul Absolute Lymphs (auto) 0.3 L (1.0-4.8) 10^3/ul Absolute Monos (auto) 0.4 (0-0.8) 10^3/ul Absolute Eos (auto) 0.1 (0-0.6) 10^3/ul Absolute Basos (auto) 0.0 (0-0.2) 10^3/ul Absolute Nucleated RBC 0.0 10^3/ul Nucleated RBC % 0.0 Sodium (135-145) mmol/L Potassium (3.5-5.0) mmol/L Chloride (101-111) mmol/L Carbon Dioxide (22-32) mmol/L Anion Gap (2-11) mmol/L BUN (6-24) mg/dL Creatinine (0.51-0.95) mg/dL Est GFR ( Amer) (>60) Est GFR (Non-Af Amer) (>60) BUN/Creatinine Ratio (8-20) Glucose (70-100) mg/dL Lactic Acid (0.5-2.0) mmol/L Calcium (8.6-10.3) mg/dL Total Bilirubin (0.2-1.0) mg/dL AST (13-39) U/L ALT (7-52) U/L Alkaline Phosphatase (34-104) U/L C-Reactive Protein (<8.01) mg/L Total Protein (6.4-8.9) g/dL Albumin (3.2-5.2) g/dL Globulin (2-4) g/dL Albumin/Globulin Ratio (1-3) Beta HCG, Quant mIU/mL Urine Color Yellow Urine Appearance Cloudy Urine pH 5.0 (5-9) Ur Specific [place] 1.023 (1.010-1.030) Urine Protein Negative (Negative) Urine Ketones Negative (Negative) Urine Blood Negative (Negative) Urine Nitrate Negative (Negative) Urine Bilirubin Negative (Negative) Urine Urobilinogen Negative (Negative) Ur Leukocyte Esterase Negative (Negative) Urine Glucose Negative (Negative) Influenza A (Rapid) (Negative) Influenza B (Rapid) (Negative) Group A Strep Rapid Negative (Negative) Result Diagrams: 06/14/19 14:21 06/14/19 14:18 Lab Statement: Any lab studies that have been ordered have been reviewed, and results considered in the medical decision making process. Re-Evaluation - Re-Evaluation First Eval Change: Improved - sxs improved, continues to be tachycardic Second Eval Change: Unchanged - tachy/ continues to have RICE, but this has improved Course/Dx - Course Course Of Treatment: On patient arrival, she is noted to be tachycardic at 125 and afebrile at 99.8. However, when provider took temp in room, it is noted to be 102.8. Patient appears ill, diaphoretic, states she feels cold, endorsing migraine. BP soft at 99/54. Lungs CTA. Pharyngeal erythema without tonsilar exudates bilaterally. Airway patent. No cervical LAD. TM without erythema, positive cone of light. No conjunctival injection. EOMI/SHRUTHI. No abdominal tenderness throughout. No CVA tenderness bilaterally. No urinary sxs per patient. No rashes or dry mucous membranes. As patient has known exposure to flu - septic workup was not initiated on arrival. Influenza swab obtained. 2L fluids ordered and labs obtained. At this time she was also given tylenol and toradol for fever and RICE. Influenza negative. At this time, septic workup initiated. Per weight, pt given 2L fluids, vanco and zosyn for broad spectrum coverage of "fever of unknown origin." Remains tachycardic at recheck s/p 2L fluids, subsequently given another 1L fluids. Strep and CXR completed - both negative. Labs showed no elevation of WBC with slight elevation of CRP at 22.25. Continues to endorse RICE and is given Fioricet. Patient states she feels improved, however remains tachycardic. She denies any SOB, however CTA chest ordered to further evaluate for PE or PNA vs other etiology. Denies any neck pain at this time and able to touch chin to chest without discomfort. Patient is signed out to [facility] pending CTA and further workup as needed. - Febrile Illness Differential Diagnoses: Bacteremia, Endocarditis, Fever of Unknown Origin, Meningitis, Sepsis, Viremia, Other: - virus, influenza - Diagnoses Provider Diagnoses: Fever Discharge ED - Sign-Out/Discharge Documenting (check all that apply): Sign-Out Patient Signing out patient TO: Eduardo Dejesus - Discharge Plan Condition: Fair Referrals: Alejandro Wheat MD [Primary Care Provider] - - Billing Disposition and Condition Condition: FAIR
[2019-06-14] MEDS ORDERED: Lactated Ringers 1000 ML Bag* 1,000 ML IV SCH (20:00)
[2019-06-14 20:57] LABS: Erythrocyte Sed Rate 5 mm/Hr (0-19)
[2019-06-14] MEDS ORDERED: Lactated Ringers 1000 ML Bag* 1,000 ML IV ONE (21:00)
[2019-06-14 23:14] LABS: Urine Benzodiazepine Screen None Detected (None Detect); Urine Opiates Screen None Detected (None Detect)
[2019-06-15] MEDS ORDERED: Acetaminophen TAB* 325 MG PO PRN (00:14)
[2019-06-15] MEDS ORDERED: NS 0.9% 1000 ML** 1,000 ML IV SCH (00:15)
[2019-06-15 03:40] LABS: TSH (Thyroid Stimulating Horm) 1.12 mcIU/mL (0.34-5.60)
--- NOTE | 2019-06-15 05:18 | HP ---
HISTORY AND PHYSICAL: DATE OF ADMISSION: 06/15/19 HISTORY OF PRESENT ILLNESS: A 23-year-old female with no significant past medical history except for migraine and asthma, presented to the ED with flu- like symptoms, mostly fever and fatigue since last night. The patient states fever started with body aches, sweat and chills in the middle of the night and now she is feeling very cold. She took Tylenol with no relief of symptoms. She stated that her daughter tested positive for flu 2 days prior and currently on Tamiflu. She denied any cough, sore throat, but said that last night her migraine was exacerbated. In the ED now, she stated that she started coughing with mild sore throat. Currently, she states she has loss of appetite and endorses poor p.o. intake. She said the migraine is rated at 5/ 10. She takes Fioricet at home, but has not taken any today. She denies stiff neck or joint pains. She states photophobia, but, however, states it is not above her baseline for the migraine history she has. Also stated that her checked into the ED for the same symptoms she is having. At the moment , she denied shortness of breath. She denied any recent travel or sick contact except for her daughter. PAST MEDICAL HISTORY: Includes asthma and migraine. PAST SURGICAL HISTORY: Myringotomy. MEDICATIONS: At home, Fioricet only. ALLERGIES: No known drug allergies. FAMILY HISTORY: Positive for diabetes. SOCIAL HISTORY: She is fully employed. Lives with and daughter. and has 1 daughter. She denied alcohol use. Denied use of illicit drugs, but endorses vaping. She states she is a former smoker. REVIEW OF SYSTEMS: Positive for fever, chills, and fatigue. Positive photophobia, headaches. Positive for sore throat, negative for earache and nasal discharge and postnasal drip. Positive for chest pain with deep coughing , but none currently. Negative palpitations. Abdomen: Negative for abdominal pain. Musculoskeletal: Positive for myalgia which is diffuse. Skin: Negative rash and bruising. Positive headache. Negative weakness, paresthesia, numbness and syncope. All others as dictated in the HPI. PHYSICAL EXAMINATION GENERAL: The patient constitutionally is well developed, well nourished, alert in no apparent distress. Appeared weak and fatigued. APPEARANCE: Ill-appearing. Skin diaphoretic. Hair: Normal hair and face inspection. EYES: EOMI, SHRUTHI, conjunctiva clear. HEENT: Hearing grossly normal. Normal pharyngeal erythema. Uvula midline. Negative nasal congestion. Negative tympanic membrane bulging. Negative tonsillar swelling. Negative tonsillar exudates. Negative dental tenderness. Negative sinus tenderness. VITAL SIGNS: Temperature 99.8, pulse 125, respiratory rate 18, BP 115/73, pulse oximetry 100%. These were vitals when she came into the ED. Most recent vitals: Temperature 100.3, pulse 119, BP 89/57, pulse oximetry 100%. RESPIRATORY: Clear to auscultation. Good air entry. Normal breath sounds. CARDIOVASCULAR: S1, S2 heard, regular rate and rhythm, tachycardia. ABDOMEN: Soft, nontender, nondistended. No masses palpable. Normal bowel sounds in all 4 quadrants. MUSCULOSKELETAL: Normal strength, normal range of motion. NEUROLOGICAL: Awake, alert, oriented x3. CN II through XII intact. No focal deficit. PSYCHIATRIC: Normal mood, normal affect. DIAGNOSTIC STUDIES/LAB DATA: Hematology: WBC 5.8, RBC 4.29, hemoglobin 12.9, hematocrit 37, MCV 87, MCH 30, MCHC 35, RDW 13, platelet count 150, MPV 7.8, neutrophil percentage 86.7, lymphs 4.8, monocytes 7.2, eosinophil 1, absolute neutrophil 5, absolute lymph 0.3, absolute monocyte 0.4, absolute eosinophil 0.1. Chemistry: Sodium 137, potassium 4, chloride 105, carbon dioxide 26, anion gap 6. BUN 8, creatinine 0.68. Estimated GFR non- 108.2, BUN and creatinine ratio 11.8, glucose 97, lactic acid 0.7, calcium 9.1, total bilirubin 0.50, AST 12, ALT 8, alkaline phosphatase 53, C-reactive protein 22.25 , total protein 6.7, albumin 4.1, globulin 2.6, albumin-globulin ratio 1.6, beta HCG less than 0.60. Urine pH 5, color yellow, appearance cloudy. Urine specific gravity 1.023, urine protein negative. Urine ketones negative. Urine blood negative. Urine nitrites negative. Urine bilirubin negative. Urobilinogen negative. Urine leukocyte esterase negative. Urine glucose negative. The patient's swab for influenza A negative, influenza B negative. Group A strep negative. Urine toxicology negative for opiates, barbiturates, PCP, amphetamine, benzodiazepine, urine cocaine, cannabinoids are all negative. Chest x-ray: Elevated lung volumes suggest potential obstructive lung disease. No evidence for pneumonia. CTA findings: Pulmonary arteries are well opacified to the subsegmental branches, normal calibre main pulmonary artery, no filling defect throughout pulmonary artery tree. Aorta: No aortic atherosclerotic calcifications. No aortic dissection, aneurysms or rupture. Thyroid: No thyroid nodules. Lungs: No pulmonary nodules, masses or consolidation. No bronchiectasis, peribronchial thickening, or luminal defects. Pleural space normal. No pneumothorax. No pleural effusion. Heart: Normal. No cardiomegaly. No pericardial effusion. Lymph nodes: Normal. No enlarged lymph nodes. Bone joints: No fractures. No suspicious skin lesions. Soft tissues normal. Final impression: No pulmonary emboli. No additional findings that correlate with the patient's symptomatology. ASSESSMENT AND PLAN: A 23-year-old, otherwise healthy female presenting to the ED with flu-like symptoms, which include fever, fatigue, sore throat, , mild cough, and tachycardiac with dehydration. The patient will be admitted to the medical floor and treated for fever of unknown origin with continuos monitoring and workup. Differentials include bacteremia, meningitis, sepsis, viral syndrome, and endocarditis. For fever of unknown origin, I will continue with Tylenol 650 mg q.6 p.r.n. for fever. I will continue IV hydration with normal saline. The patient received 2 boluses in the ED. We will continue at 225 mL per hour. Zofran for nausea and vomiting, pain control, follow up a.m. labs. I will do an echocardiography in the morning. Follow up blood culture and urine culture. For migraine headache, I will continue with Fioricet as needed. Diet is normal diet. DVT prophylaxis: SCDs. The patient is low risk for DVT. Code status is full. Time spent on this admission is greater than 60 minutes. Greater than half of the time was spent [id number] with the patient, obtaining my history and physical and the other half of the time was spent going over the plan of care with the patient and implementing plan of care. Thank you very much for the opportunity to partake in the healthcare needs of this sekou lady. [id number]/[facility] #: [id number] ANAT
--- NOTE | 2019-06-15 08:34 | PN ---
Subjective Date of Service: 06/15/19 Interval History: HD2 23F PMH migraines presented with fever, likely of viral source. Overnight T 100 Labs and workup unrevealing. This morning, seen with family, mom has flu A, daughter has Flu A, grandmother has Flu A and they all cohabitate. Furaldocorazon, pt reports her R ear is hurting her and on otoscope exam has sig otitis media. We discuss that she likely has Flu and associated ear infection, she has no coughing no CP, does have myalgias , feels better with Tylenol and fluids. Family will need PPX as they are smokers. Objective Active Medications: Acetaminophen (Tylenol Tab*) 650 mg PO Q6H TANNER Sodium Chloride (Ns 0.9% 1000 Ml) 1,000 mls @ 125 mls/hr IV PER RATE [facility] Last Admin: 06/15/19 03:13 Dose: 125 mls/hr Influenza Virus Vaccine (Fluarix Quad [id number] Syr) 0.5 ml IM .ONCE ONE Stop: 06/15/19 09:01 Vital Signs - 8 hr 06/15/19 06/15/19 06/15/19 00:00 00:03 00:05 Temperature Pulse Rate 114 117 117 Respiratory Rate Blood Pressure 103/57 (mmHg) O2 Sat by Pulse 96 97 96 Oximetry 06/15/19 06/15/19 06/15/19 00:24 00:55 01:17 Temperature Pulse Rate 121 Respiratory 18 Rate Blood Pressure 103/58 110/59 (mmHg) O2 Sat by Pulse 96 Oximetry 06/15/19 06/15/19 01:45 01:50 Temperature 100 F 100.4 F Pulse Rate 109 118 Respiratory 18 16 Rate Blood Pressure 112/66 120/71 (mmHg) O2 Sat by Pulse 100 97 Oximetry Oxygen Devices in Use Now: None Appearance: Pleasant woman in NAD eating lunch Eyes: No Scleral Icterus, PERRLA Ears/Nose/Mouth/Throat: - - R ear with purulent effusion with no distusigable landmarks on TM. No rupture. Poor denition, L ear OK Neck: Trachea Midline Respiratory: Clear to Auscultation Cardiovascular: RRR Abdominal: NL Sounds; No Tenderness; No Distention Lymphatic: No Cervical Adenopathy Extremities: No Edema Skin: No Rash or Ulcers Neurological: Alert and Oriented x 3 Result Diagrams: 06/14/19 14:21 06/14/19 14:18 Additional Lab and Data: Lab Results 06/14/19 06/14/19 06/14/19 Range/Units 13:58 14:18 14:18 WBC (3.5-10.8) 10^3/uL RBC (3.70-4.87) 10^6 /uL Hgb (12.0-16.0) g/dL Hct (35-47) % MCV (80-97) fL MCH (27-31) pg MCHC (31-36) g/dL RDW (10-15) % Plt Count (150-450) 10^3/uL MPV (7.4-10.4) fL Neut % (Auto) % Lymph % (Auto) % [place] % (Auto) % Eos % (Auto) % Baso % (Auto) % Absolute Neuts (auto) (1.5-7.7) 10^3/ul Absolute Lymphs (auto) (1.0-4.8) 10^3/ul Absolute Monos (auto) (0-0.8) 10^3/ul Absolute Eos (auto) (0-0.6) 10^3/ul Absolute Basos (auto) (0-0.2) 10^3/ul Absolute Nucleated RBC 10^3/ul Nucleated RBC % Sodium 137 (135-145) mmol/L Potassium 4.0 (3.5-5.0) mmol/L Chloride 105 (101-111) mmol/L Carbon Dioxide 26 (22-32) mmol/L Anion Gap 6 (2-11) mmol/L BUN 8 (6-24) mg/dL Creatinine 0.68 (0.51-0.95) mg/dL Est GFR ( Amer) 130.9 (>60) Est GFR (Non-Af Amer) 108.2 (>60) BUN/Creatinine Ratio 11.8 (8-20) Glucose 97 (70-100) mg/dL Lactic Acid 0.7 (0.5-2.0) mmol/L Calcium 9.1 (8.6-10.3) mg/dL Total Bilirubin 0.50 (0.2-1.0) mg/dL AST 12 L (13-39) U/L ALT 8 (7-52) U/L Alkaline Phosphatase 53 (34-104) U/L C-Reactive Protein 22.25 H (<8.01) mg/L Total Protein 6.7 (6.4-8.9) g/dL Albumin 4.1 (3.2-5.2) g/dL Globulin 2.6 (2-4) g/dL Albumin/Globulin Ratio 1.6 (1-3) Beta HCG, Quant < 0.60 mIU/mL Urine Color Urine Appearance Urine pH (5-9) Ur Specific [place] (1.010-1.030) Urine Protein (Negative) Urine Ketones (Negative) Urine Blood (Negative) Urine Nitrate (Negative) Urine Bilirubin (Negative) Urine Urobilinogen (Negative) Ur Leukocyte Esterase (Negative) Urine Glucose (Negative) Influenza A (Rapid) Negative (Negative) Influenza B (Rapid) Negative (Negative) Group A Strep Rapid (Negative) 06/14/19 06/14/19 06/14/19 Range/Units 14:21 15:38 15:38 WBC 5.8 (3.5-10.8) 10^3/uL RBC 4.29 (3.70-4.87) 10^6 /uL Hgb 12.9 (12.0-16.0) g/dL Hct 37 (35-47) % MCV 87 (80-97) fL MCH 30 (27-31) pg MCHC 35 (31-36) g/dL RDW 13 (10-15) % Plt Count 150 (150-450) 10^3/uL MPV 7.8 (7.4-10.4) fL Neut % (Auto) 86.7 % Lymph % (Auto) 4.8 % [place] % (Auto) 7.2 % Eos % (Auto) 1.0 % Baso % (Auto) 0.3 % Absolute Neuts (auto) 5.0 (1.5-7.7) 10^3/ul Absolute Lymphs (auto) 0.3 L (1.0-4.8) 10^3/ul Absolute Monos (auto) 0.4 (0-0.8) 10^3/ul Absolute Eos (auto) 0.1 (0-0.6) 10^3/ul Absolute Basos (auto) 0.0 (0-0.2) 10^3/ul Absolute Nucleated RBC 0.0 10^3/ul Nucleated RBC % 0.0 Sodium (135-145) mmol/L Potassium (3.5-5.0) mmol/L Chloride (101-111) mmol/L Carbon Dioxide (22-32) mmol/L Anion Gap (2-11) mmol/L BUN (6-24) mg/dL Creatinine (0.51-0.95) mg/dL Est GFR ( Amer) (>60) Est GFR (Non-Af Amer) (>60) BUN/Creatinine Ratio (8-20) Glucose (70-100) mg/dL Lactic Acid (0.5-2.0) mmol/L Calcium (8.6-10.3) mg/dL Total Bilirubin (0.2-1.0) mg/dL AST (13-39) U/L ALT (7-52) U/L Alkaline Phosphatase (34-104) U/L C-Reactive Protein (<8.01) mg/L Total Protein (6.4-8.9) g/dL Albumin (3.2-5.2) g/dL Globulin (2-4) g/dL Albumin/Globulin Ratio (1-3) Beta HCG, Quant mIU/mL Urine Color Yellow Urine Appearance Cloudy Urine pH 5.0 (5-9) Ur Specific [place] 1.023 (1.010-1.030) Urine Protein Negative (Negative) Urine Ketones Negative (Negative) Urine Blood Negative (Negative) Urine Nitrate Negative (Negative) Urine Bilirubin Negative (Negative) Urine Urobilinogen Negative (Negative) Ur Leukocyte Esterase Negative (Negative) Urine Glucose Negative (Negative) Influenza A (Rapid) (Negative) Influenza B (Rapid) (Negative) Group A Strep Rapid Negative (Negative) Assess/Plan/Problems-Billing Assessment: 23F PMH migraines presented with fever, likely of viral source with associated otitis media. Stable for d/c - Patient Problems (1) Otitis media Current Visit: Yes Status: Acute Code(s): H66.90 - OTITIS MEDIA, UNSPECIFIED , UNSPECIFIED EAR SNOMED Code(s): 21853780 Comment: -Amox clauv, likely part of flu complications -Does need abx (2) Fever Current Visit: Yes Status: Acute Code(s): R50.9 - FEVER, UNSPECIFIED SNOMED Code(s): 485514924 Comment: -Likely flu and otitis media -Start Tamiflu empircally and Amox-Clav, d/c to home with work note and family gets PPX (3) DVT prophylaxis Current Visit: Yes Status: Acute Code(s): Z29.9 - ENCOUNTER FOR PROPHYLACTIC MEASURES, UNSPECIFIED SNOMED Code(s): 288565342 Comment: -Ambuatlory (4) Full code status Current Visit: Yes Status: Acute Code(s): Z78.9 - OTHER SPECIFIED HEALTH STATUS SNOMED Code(s): 643959475 Status and Disposition: DC to home
--- NOTE | 2019-06-15 08:52 | ECHO ---
*[facility]* [place] [address] Fax #: [phone] Transthoracic Echocardiogram Patient: Inderjit Nascimento : 1995 Study Date: 06/15/2019 Age: 23 Gender: F HR: 105 bpm Height: 65 in /165.1 cm BSA: 1.75 m^2 Weight: 149.7 lb /68 kg BMI: 25 kg/m^2 *Glove Operator: * Maggie Herrera [facility] *Referring Physician: * Janusz Duncan *Reading Physician: * Fidel Covarrubias MD Indications: Abnormal EKG. History: Previously healthy. Conclusions Summary: - Left ventricle: The cavity size is normal. Wall thickness is normal. Systolic function is normal. The estimated ejection fraction is 50-55%. Wall motion is normal; there are no regional wall motion abnormalities. Left ventricular diastolic function parameters are normal. - Right ventricle: The cavity size is normal. Systolic function is low normal. - Left atrium: The atrium is normal in size. - Pericardium, extracardiac: There is no significant pericardial effusion. - Pulmonary arteries: Systolic pressure can not be accurately estimated. - No significant valvular abnormalities noted. Recommendations: None prior for comparison. Paitent tachycardic at time of examination. No EKG available to review at time of interpretation. Study data: Transthoracic echocardiogram. Procedure: Transthoracic echocardiography was performed. Image quality was fair. Complete 2D, spectral Doppler, and color flow Doppler. Location: Bedside. Patient status: Inpatient. Patient room number: 452. Rhythm: Tachycardia. Findings Left ventricle: The cavity size is normal. Wall thickness is normal. Systolic function is normal. The estimated ejection fraction is 50-55%. Wall motion is normal; there are no regional wall motion abnormalities. Left ventricular diastolic function parameters are normal. Right ventricle: The cavity size is normal. Systolic function is low normal. Left atrium: The atrium is normal in size. Right atrium: The atrium is normal in size. Mitral valve: The leaflets are normal thickness. There is no evidence of stenosis. There is no significant regurgitation. Aortic valve: The valve is trileaflet. The leaflets are normal thickness. There is no evidence of stenosis. There is no significant regurgitation. Tricuspid valve: The leaflets are normal thickness. There is no evidence of stenosis. There is trace regurgitation. Pulmonic valve: The leaflets are normal thickness. There is no evidence of stenosis. There is trace regurgitation. Aorta: The aortic root appears normal. Pericardium: There is no significant pericardial effusion. Pulmonary arteries: Systolic pressure can not be accurately estimated. Systemic veins: Inferior vena cava: The vessel is normal in size. There is (>= 50%) respiratory change in the IVC dimension. Measurements Left ventricle Value Ref Aortic valve Value Ref MARIA C, LAX 4.7 cm 3.8 - 5.2 Tae diam, ED 2.0 cm ------- ESD, LAX (H) 3.8 cm 2.2 - 3.5 Peak v, S 1.54 m/sec ------- FS, LAX (L) 18 % 27 - 45 VTI, S 28.5 cm ------- PW, ED, LAX 0.9 cm 0.6 - 0.9 Mean grad, S 6.0 mm Hg ------- E', lat tae, TDI 13.7 cm/sec >=10.0 Peak grad, S 9.0 mm Hg ------- E/e', lat tae, 7 TDI Mitral valve Value Ref E', med tae, TDI 10.4 cm/sec >=7.0 Peak E 0.95 m/sec ------- E/e', med tae, 9 Peak A 0.51 m/sec -- ----- TDI Decel time 48 ms ------- E', avg, TDI 12.1 cm/sec Peak grad, D 3.6 mm Hg -- ----- E/e', avg, TDI 8 <=14 Peak E/A ratio 1.9 ------- LVOT Value Ref Pulmonic valve Value Ref Peak zak, S 1.38 m/sec Peak v, S 0.74 m/sec ------- Peak grad, S 8 mm Hg Peak grad, S 2.0 mm Hg ------- Mean grad, S 4 mm Hg Aortic root Value Ref Ventricular septum Value Ref Root diam 2.6 cm <3.4 IVS, ED 0.8 cm 0.6 - 0.9 Root max diam/bsa, 1.5 cm/m^2 1.4 - ED 2.2 Right ventricle Value Ref MARIA C, LAX 2.7 cm Ascending aorta Value Ref MARIA C minor ax, A4C 2.8 cm 1.9 - 3.5 AAo AP diam, S 2.2 cm ------- mid AAo AP diam/bsa, S 1.3 cm/m^2 ------- Left atrium Value Ref Aortic arch Value Ref AP dim, ES 3.00 cm 2.70 - Arch diam 1.8 cm ------- 3.80 Arch diam/bsa 1.0 cm/m^2 ------- ML dim, A4C 3.5 cm SI dim, A4C 4.1 cm Decending aorta Value Ref Vol/bsa, ES, A/L (L) 15 ml/m^2 16 - 34 Irineo peak zak 1.06 m/sec ------- Right atrium Value Ref Inferior vena cava Value Ref SI dim, ES 4.3 cm 3.4 - 5.3 Diam 1.4 cm ------- ML dim, ES, A4C 3.7 cm 2.6 - 4.4 Estimated RAP 8 mm Hg Legend: (L) and (H) jose values outside specified reference range. Prepared and electronically signed by Fidel Covarrubias MD 06/15/2019 08:52
[2019-06-15] MEDS ORDERED: Influenza VAC *QUAD* 2019-20* 0.5 ML SYRINGE IM ONE (09:00)
[2019-06-15] MEDS: Acetaminophen TAB* 325 MG PO SCH ×2 (09:02→13:46)
[2019-06-15] MEDS ORDERED: Oseltamivir CAP* 75 MG CAP PO SCH (13:00)
[2019-06-15] MEDS ORDERED: Amoxicillin/Clavulanate TAB* 875 MG PO SCH (13:00)
[2019-06-15 14:11] VITALS: BP 105/53
--- NOTE | 2019-06-15 19:45 | DS ---
DISCHARGE SUMMARY: DATE OF ADMISSION: 06/14/19 DATE OF DISCHARGE: 06/15/19 PRIMARY CARE PROVIDER: "Dr. Gagan Wheat." DISPOSITION AT THE TIME OF DISCHARGE: Stable, to be discharged to home. PRIMARY DIAGNOSES: 1. Otitis media, suppurative. 2. Presumed influenza A. SECONDARY DIAGNOSIS: None. MEDICATIONS AT THE TIME OF DISCHARGE: 1. Amoxicillin 875 mg p.o. b.i.d. for an additional 5 days status post discharge. 2. Oseltamivir 75 mg p.o. b.i.d. for an additional 9 tablets status post discharge. Medication changes were the addition of amoxicillin, oseltamivir. HISTORY OF PRESENT ILLNESS AND HOSPITAL COURSE: This is a 23-year-old healthy female who presented t o the emergency room with fevers, headaches, upper respiratory symptoms, and myalgias for 2 days prio r to this admission. Her grandmother, daughter, and mother were all diagnosed with influenza A, test ed positive and then the patient started to show symptoms shortly after them. In the emergency room, she had an extensive workup including a normal CBC, normal urine, normal BMP, and an influenza swab that was negative. She was admitted based on her meeting sepsis criteria with tachycardia and fever to 101 in the emergency room, was admitted for observation to ensure there was no additional source o f infection. She remained febrile after receiving vanc and Zosyn in the emergency room, and on exam by the hospita list on hospital day 2, the patient has a large suppurative otitis media on the right and continues t o have flu-like symptoms and most likely this patient is influenza A positive given her family all be ing influenza A positive and cohabiting with her and our test in the emergency room was most likely f alse negative. Furthermore, the findings of acute physical exam with suppurative otitis media, the p atient responded well to amoxicillin and Tamiflu. She was able to be discharged on hospital day 2, t olerating full diet, with a work note. LABS AND STUDIES DONE DURING THIS HOSPITALIZATION: White blood cell count 5.8, hemoglobin 12.9, gisela tocrit 37, and platelets 150. BMP shows sodium 137, potassium 4, chloride 105, carbon dioxide 26, an ion gap 6, BUN 8, creatinine 0.68, lactic acid was 0.7. AST and ALT were normal. CRP was 22. Urina lysis was wholly unremarkable. Influenza A and B were negative and a rapid strep was negative. Imaging including a chest x-ray showed no acute disease. A chest/thorax CTA was also performed for this patient including no pulmonary emboli. A transthoracic echocardiogram was done in this hospitalization, which showed normal ejection fractio n of 50% to 55%. No vegetations on any of the valves. Microbiology including blood and urine cultures showed no growth to date prior to this discharge, alt bettie her cultures will be monitored after she is discharged from the hospital. ITEMS TO FOLLOW UP ON STATUS POST DISCHARGE: 1. The patient presented with fever, with a family that had positive influenza A and while she was r apid flu negative in the emergency room, this was presumed to be false negative or possibly too early in her testing scope. She also has significant suppurative otitis media, which could be a source of her viral symptoms as well as her fever. She should be on amoxicillin and Tamiflu. She had an exte nsive workup in the emergency room, which was unrevealing and her cultures will be followed by the spitalist team. She can follow up with primary care to continue her routine primary care. Also, PCP to be aware that this provider did prescribe prophylaxis to the family for influenza at 75 mg by lori th once daily to her cohabiting family members who do not have flu symptoms at this time. 2. Uninsured status. The patient is uninsured. They are given information to apply for Medicaid an d have no further questions. TIME SPENT: Forty five minutes was spent on the planning of this discharge with over half of that sp ent directly at the bedside of the patient providing direct patient care. Plan of care was discussed with the patient and family. They have no further questions. If there are any questions about the care of this patient during this hospitalization, please do not hesitate to reach out and contact me directly to cellphone [phone]. [id number]/[facility] #: [id number]
== END 2019-06-15 15:08 | disposition home or self-care (01) ==
LOC: ED 13:20 → MEDTELE 06-15 00:06 → INTOOBSV 06-15 00:06
PROVIDERS: ADMIT Family Medicine; ATTEND Internal Medicine
DX: H66.40 Suppurative otitis media, unspecified, unspecified ear (principal); J45.909 Unspecified asthma, uncomplicated; R50.9 Fever, unspecified; R53.83 Other fatigue; Z87.891 Personal history of nicotine dependence; J02.9 Acute pharyngitis, unspecified; R94.31 Abnormal electrocardiogram [ECG] [EKG]; Z23 Encounter for immunization
CPT/HCPCS: 36415; 71046; 71275; 80053; 80307; 81003; 83605; 84443; 84702; 85025; 85652; 86140; 87040; 87651; 90471; 90686; 93306; 96361; 96365; 96367; 96375; 99285; A9270-GY; G0008; G0378; G0480; J1885; J2405; J2543; J3370; Q9967